=== PATIENT | male | born 1975 | race Caucasian/White ===

== ENCOUNTER 2017-01-11 10:36 | Observation (INO) | payer SELFPAY ==
[2017-01-02 16:03] LABS: BASOPHILS 0.2 %; BASOPHILS ABSOLUTE 0.03 10/3/uL (0.0-0.16); EOSINOPHILS 2.3 %; EOSINOPHILS ABSOLUTE 0.28 10/3/uL (0.0-0.53); HEMATOCRIT 43.4 % (40.0-51.0); IMMATURE GRANULOCYTES 0.2 %; IMMATURE GRANULOCYTES ABSOLUTE 0.02 10/3/uL (0.0-0.11); LYMPHOCYTES 30.6 %; LYMPHOCYTES ABSOLUTE 3.75 10/3/uL (0.67-4.30); MEAN CORPUS HGB CONC 34.6 g/dL (32.0-36.0); MEAN CORPUSCULAR HEMOGLOB 31.8 pg (26.0-34.0); MEAN CORPUSCULAR VOLUME 92.1 fL (80-100); MEAN PLATELET VOLUME 11.3 fL (9.2-13.0); MONOCYTES 7.3 %; MONOCYTES ABSOLUTE 0.89 10/3/uL (0.21-1.20); NEUTROPHILS 59.4 %; PLATELET COUNT 282 10/3/uL (150-400); RBC DISTRIBUTION WIDTH 12.6 % (12.0-16.0); RED CELL COUNT 4.71 10/6/uL (4.7-6.1); WHITE BLOOD CELLS 12.3 10/3/uL (4.5-10.5)
[2017-01-02 16:05] LABS: MANUAL DIFF NO %
[2017-01-02 16:08] LABS: PARTIAL THROMBO TIME 25.2 SEC (22.5-37.2); PROTIME (NOT ORD) 12.8 SEC (12.0-14.5)
[2017-01-02 16:12] LABS: BUN (BLOOD UREA NITROGEN) 15 MG/DL (6-23); CHLORIDE, SERUM 105 MMOL/L (96-112); CO2 (CARBON DIOXIDE) 25 MMOL/L (24-34); CREATININE 0.86 MG/DL (0.70-1.30); GFR AFRICAN AMERICAN 126 ML/MIN (>=60); GFR NON AFRICAN AMERICAN 108 ML/MIN (>=60); GLUCOSE, SERUM 102 MG/DL (60-99); POTASSIUM, SERUM 4.1 MMOL/L (3.5-5.3); SODIUM, SERUM 138 MMOL/L (135-148)
[2017-01-02 17:58] LABS: ASCORBIC ACID (UR NOT ORDER) NEG (NEG); BILIRUBIN, URINE NEGATIVE (NEG); KETONE, URINE NEGATIVE (NEG); LEUKOCYTE ESTERASE(NOT OR MOD (NEG); WBC (NOT ORDERED) (RFLEX) 8 (0-5)
--- NOTE | ~2017-01-11 | OP ---
Record Of Operation [facility] [address] [place]. [address] NAME: ORQUIDEA HAINES : 77 STATUS : ADM Tiana PAT#: [id number] AGE: 41 ADM/REG DATE : 01/11/17 MR#: [id number] REPORT SERV DATE: 01/11/17 DICTATED BY: PRABHU BRIAN DATE: 01/11/17 REPORT STATUS : Draft TRANSCRIBED BY: MODL DATE: 01/11/17 DATE OF PROCEDURE: 01/11/2017 PREOPERATIVE DIAGNOSIS: Staghorn calculus, left kidney (stone greater than 2.5 cm). POSTOPERATIVE DIAGNOSIS: Staghorn calculus, left kidney (stone greater than 2.5 cm). PROCEDURE: Left percutaneous nephrolithotomy with in situ lithotripsy, left antegrade ureteral stent placement, left nephrostomy tube exchange, left nephrostogram. SURGEON: Prabhu Brian M.D. ANESTHESIA: General. ESTIMATED BLOOD LOSS: Estimated 15 mL. FLUID REPLACEMENT: 1.6 L of crystalloid. DRAINS: A 6-Citizen [place], 26 cm double-J left ureteral stent with the strings removed, 16-Citizen [place] Brian catheter per urethra, 20-Citizen [place] Councill style catheter as a left nephrostomy tube with 4 mL of sterile water inflated in balloon through a lower pole calyx. INDICATION: As stated. TECHNIQUE: The patient has gone to the radiology suite and had a left nephroureteral tube placed through a lower pole calyx. He remains intubated, comes the operating room with the tubes still in position. He was laid in the prone position on the cystoscopy table, and appropriately padded and secured to the table. The entire left flank including the nephrostomy tube was prepped and draped in usual sterile fashion. A 0.35 Amplatz Super Stiff wire was passed down the open-ended catheter into the bladder under fluoroscopy. The open-ended catheter was removed. The skin was incised for a 2 cm. A Misha exchange catheter was placed over the Super Stiff wire. The inner core was removed and a second wire was placed down the left ureter and into the bladder under fluoroscopy. The Misha was removed. Over one of the wires, I used a NephroMax nephrostomy tract balloon dilator. The tip of its position in the renal pelvis. I dilated the nephrostomy tract to 12 atmospheres and holding there for 5 minutes. I then advanced a 25-[place]izen [place] plastic sheath over the dilated balloon and into the renal pelvis. The balloon was then deflated and removed leaving the wire behind. I placed a rigid nephroscope through the sheath and into the renal pelvis of the left kidney. The stone was easily identified. The stone was way too large to take out in one piece. I used the ultrasonic Lithotripter and begin to grind the stone attempting to break it in half. Mostly broken in half and then used the pneumatic Lithotripter to fracture the stones several times. I then began to remove the pieces and I intermittently for two hours Record Of Operation [facility] [id number] [facility] [place]. [address] NAME: ORQUIDEA HAINES : 77 STATUS : ADM Tiana PAT#: [id number] AGE: 41 ADM/REG DATE : 01/11/17 MR#: [id number] REPORT SERV DATE: 01/11/17 DICTATED BY: PRABHU BRIAN DATE: 01/11/17 REPORT STATUS : Draft TRANSCRIBED BY: KARMA DATE: 01/11/17 do grinding, and fracturing, and removing the pieces. I was able to clear the entire renal pelvis and lower pole off stone. There looked like there may be two stones in the upper pole and mid pole calyx. I was able to get into one of the upper pole calices, but I could not get into the one containing the stone. Nevertheless, I cleared the entire renal pelvis off stone. All over the one of the wires, I placed a 6-[place], 26 cm double-J left ureteral stent with the distal end coiled in the bladder. The proximal end was seen coiled in the renal pelvis. The wire and the strings were removed. I then removed the nephroscope, placed a 20-Citizen [place] Councill style catheter through the sheath and positioned the tip of it in the renal pelvis. I, through this sheath several centimeters, placed 4 mL of sterile water in the balloon. I then performed nephrostogram which showed the nephrostomy tube in good position draining the entire kidney. The drain was sutured to the skin with 2-0 silk. Dressings were applied. The catheter was secured to the patient. He has returned to the supine position on the gurney, awakened, and taken to recovery in stable, and satisfactory condition. The stone was collected and sent for chemical analysis. DILCIA/RAJIVL Prabhu Brian M.D. / [id number] CC: Prabhu Brian M.D.
[~2017-01-11 10:36] MED LIST: ASA5GR PO; BETA GEST PO; COD15 PO; LORT7 PO; LORTAB 5 PO; MACRODANTIN 10100 MG PO; OTC ACID REDUCER PO; PEP20 PO; PRAVACHOL80 MG PO; T3 PO; TOPXL50 PO; ZESTRIL20 MG PO
[2017-01-11 11:15] LABS: BASOPHILS 0.3 %; BASOPHILS ABSOLUTE 0.02 10/3/uL (0.0-0.16); EOSINOPHILS 2.1 %; EOSINOPHILS ABSOLUTE 0.17 10/3/uL (0.0-0.53); HEMATOCRIT 42.9 % (40.0-51.0); HEMOGLOBIN 14.6 g/dL (13.6-17.8); IMMATURE GRANULOCYTES 0.3 %; IMMATURE GRANULOCYTES ABSOLUTE 0.02 10/3/uL (0.0-0.11); LYMPHOCYTES 28.8 %; LYMPHOCYTES ABSOLUTE 2.28 10/3/uL (0.67-4.30); MEAN CORPUSCULAR HEMOGLOB 31.7 pg (26.0-34.0); MEAN CORPUSCULAR VOLUME 93.1 fL (80-100); MONOCYTES 7.2 %; MONOCYTES ABSOLUTE 0.57 10/3/uL (0.21-1.20); NEUTROPHILS 61.3 %; NEUTROPHILS ABSOLUTE 4.87 10/3/uL (2.02-8.40); PLATELET COUNT 246 10/3/uL (150-400); RBC DISTRIBUTION WIDTH 12.9 % (12.0-16.0); RED CELL COUNT 4.61 10/6/uL (4.7-6.1); WHITE BLOOD CELLS 7.9 10/3/uL (4.5-10.5)
[2017-01-11 11:16] LABS: PROTIME (NOT ORD) 12.7 SEC (12.0-14.5)
[2017-01-11 11:17] LABS: MANUAL DIFF NO %; PARTIAL THROMBO TIME 25.3 SEC (22.5-37.2)
[2017-01-11 11:21] LABS: CALCIUM, SERUM 9.4 MG/DL (8.5-10.4); CHLORIDE, SERUM 109 MMOL/L (96-112); CO2 (CARBON DIOXIDE) 23 MMOL/L (24-34); GFR AFRICAN AMERICAN 123 ML/MIN (>=60); GFR NON AFRICAN AMERICAN 106 ML/MIN (>=60); GLUCOSE, SERUM 100 MG/DL (60-99); POTASSIUM, SERUM 4.2 MMOL/L (3.5-5.3); SODIUM, SERUM 142 MMOL/L (135-148)
[2017-01-11 11:23] LABS: BUN (BLOOD UREA NITROGEN) 11 MG/DL (6-23)
[2017-01-12] MEDS ORDERED: NORCO1 TA1 PO (10:00)
[2017-01-18 20:03] LABS: STONE COMPOSITION TWO DNR (())
== END 2017-01-12 15:59 | disposition home or self-care (01) ==
LOC: CSSUOP 10:36 → RADHOLD 10:40 → CSSUOP 18:33 → 4SO 18:34
PROVIDERS: Urology
PROC: 0T25X0Z Change Drainage Device in Kidney, External Approach (ICD-10-PCS; 2017-01-11)
PROC: 0T778DZ Dilation of Left Ureter with Intraluminal Device, Via Natural or Artificial Opening Endoscopic (ICD-10-PCS; 2017-01-11)
PROC: 0TC13ZZ Extirpation of Matter from Left Kidney, Percutaneous Approach (ICD-10-PCS; principal; 2017-01-11 14:45)
DX: N20.0 Calculus of kidney (principal); I10 Essential (primary) hypertension; I25.10 Atherosclerotic heart disease of native coronary artery without angina pectoris; F17.210 Nicotine dependence, cigarettes, uncomplicated; E78.00 Pure hypercholesterolemia, unspecified; Z79.82 Long term (current) use of aspirin; Z79.899 Other long term (current) drug therapy; Z79.02 Long term (current) use of antithrombotics/antiplatelets; Z87.891 Personal history of nicotine dependence; Z98.890 Other specified postprocedural states; Z87.442 Personal history of urinary calculi
CPT/HCPCS: 50395; 50433; 76000; 80048; 81001; 82365; 85025; 85610; 85730; 87086; 93005; 96374; 96375; 96376; A9270-GY; C1726; C1758; C1769; C1892; C1894; C2617; G0378; J1170; J1956; J2405; J2710; J3010; Q9967